=== PATIENT | female | born 1965 | race Hispanic/Latino ===

== ENCOUNTER 2023-04-22 06:31 | Day surgery (SDC) | payer BC ==
[2023-04-21 10:21] LABS: Potassium 4.4 mEq/L (3.5-5.1)
--- NOTE | 2023-04-21 13:20 | EKG ---
Test Date: 2023-04-21 Test Time: 10:56:25 Webbing Tacker: ANIL MEASUREMENT RESULTS: Intervals: Rate: 62 MO: 152 QRSD: 66 QT: 372 QTc: 377 Van: P: -29 MO: 152 QRS: -20 T: 28 INTERPRETIVE STATEMENTS: Normal sinus rhythm with sinus arrhythmia Low voltage QRS Cannot rule out Anterior infarct, age undetermined Abnormal ECG No previous ECG available for comparison Electronically Signed On 04-21-23 13:20:16 [employer] by Sander Zapata
[2023-04-22] MEDS: NA CHLORIDE 0.9% 1,000 ML ONE ×2 (07:10→07:16)
[2023-04-22] MEDS ORDERED: propofoL 200 MG/20 ML VIAL IV ONE (07:55)
[2023-04-22] MEDS ORDERED: LIDOCAINE 1% MPF 5 ML VIAL ONE (07:55)
[2023-04-22 09:44] VITALS: BP 126/88; TEMP 97.5; O2SAT 98
== END 2023-04-22 09:30 | disposition home or self-care (01) ==
LOC: OR 06:31
PROVIDERS: ATTEND Surgery
PROC: 0DBP8ZX Excision of Rectum, Via Natural or Artificial Opening Endoscopic, Diagnostic (ICD-10-PCS; principal; 2023-04-22 08:00)
DX: Z12.11 Encounter for screening for malignant neoplasm of colon (principal); K57.30 Diverticulosis of large intestine without perforation or abscess without bleeding; K64.8 Other hemorrhoids; K63.5 Polyp of colon; Z80.0 Family history of malignant neoplasm of digestive organs; E11.9 Type 2 diabetes mellitus without complications; E78.5 Hyperlipidemia, unspecified; I10 Essential (primary) hypertension
CPT/HCPCS: 93005; 80048; 36415; 82947; 88305; 45384; J2704; J2001; J7030